=== PATIENT | female | born 1965 | race Caucasian/White ===

== ENCOUNTER → 2017-01-11 | Outpatient (CLI) | payer BC ==
--- NOTE | 2017-01-12 12:31 | USB ---
Reason for exam: clinical finding. History: Patient is nulliparous. Family history of breast cancer in aunt at age 75. Indicated problem(s): pain in the right breast. Physical Findings: Nurse Summary: Bilateral redness under breasts. All soft nodular movable (nurse ts). US Breast RT Right breast ultrasound includes all four quadrants, the retroareolar region and axilla. Finding demonstrate no cystic or solid lesion seen. These results were verbally communicated with the patient and result sheet given to the patient on 01/11/17. ASSESSMENT: Negative, BI-RAD 1 RECOMMENDATION: Routine screening mammogram of both breasts in 1 year. Manage patient on a clinical basis.
== END | disposition home or self-care (01) ==
LOC: RADUSWWP 10:12
PROVIDERS: ATTEND Family Medicine
DX: N64.4 Mastodynia (principal); N63 Unspecified lump in breast

== ENCOUNTER → 2017-05-11 | Outpatient (CLI) | payer BC ==
--- NOTE | 2017-05-11 11:42 | XR ---
Right knee HISTORY: Right medial knee pain 3 views of the right knee No comparisons There is spurring at the patellofemoral joint, joint space loss present especially in the medial late ral compartments. There may be a small joint effusion. Alignment and bone mineralization are maintain ed. IMPRESSION: Osteoarthritis.
== END | disposition home or self-care (01) ==
LOC: RADXRYALE 10:15
PROVIDERS: ATTEND Physician Assistant Medical
DX: M17.11 Unilateral primary osteoarthritis, right knee (principal)

== ENCOUNTER → 2020-09-16 | Outpatient (CLI) | payer BC ==
--- NOTE | 2020-09-17 08:29 | MM ---
Reason for exam: screening (asymptomatic). Last mammogram was performed 8 years and 11 months ago. History: Patient is nulliparous. Family history of breast cancer in aunt at age 75. Physical Findings: A clinical breast exam by your physician is recommended on an annual basis and results should be correlated with mammographic findings. MG Screening Mammo w CAD Bilateral CC and MLO view(s) were taken. Prior study comparison: October 13, 2011, CAD bilateral diagnostic mammogram. There are scattered fibroglandular densities. There is no discrete abnormality. ASSESSMENT: Negative, BI-RAD 1 RECOMMENDATION: Routine screening mammogram of both breasts in 1 year.
== END | disposition home or self-care (01) ==
LOC: RADMAMWWP 11:13
PROVIDERS: ATTEND Family Medicine
DX: Z12.31 Encounter for screening mammogram for malignant neoplasm of breast (principal)
CPT/HCPCS: 77067

== ENCOUNTER → 2021-01-20 | Outpatient (CLI) | payer BC ==
--- NOTE | 2021-01-20 14:26 | XR ---
Right hip HISTORY:[id number] LBP,RT HIP PAIN 2 views the right hip Bone mineralization and alignment are maintained. There is some loss of joint space, marginal spurrin g. No fracture or dislocation. IMPRESSION: Osteoarthritis.
--- NOTE | 2021-01-20 14:35 | XR ---
Lumbosacral spine HISTORY: M545,[id number] LBP,RT HIP PAIN 5 views lumbosacral spine Bone mineralization is reduced. Lumbar vertebral bodies show preserved height and alignment. There is multilevel spondylosis. Loss of disc height present at the intervertebral levels. Sclerosis is prese nt in the posterior elements. There is no evident spondylolysis. There is a slight spinal curvature. IMPRESSION: Degenerative disc disease, facet arthropathy, osteopenia, slight spinal curvature.
== END | disposition home or self-care (01) ==
LOC: RADXRYALE 11:09
PROVIDERS: ATTEND Physician Assistant Medical
DX: M51.37 Other intervertebral disc degeneration, lumbosacral region (principal); M47.817 Spondylosis without myelopathy or radiculopathy, lumbosacral region; M85.88 Other specified disorders of bone density and structure, other site; M43.8X7 Other specified deforming dorsopathies, lumbosacral region; M16.11 Unilateral primary osteoarthritis, right hip
CPT/HCPCS: 72110; 73502

== ENCOUNTER → 2021-05-23 | Outpatient (CLI) | payer BC ==
--- NOTE | 2021-06-29 09:27 | EM ---
Event monitor for palpitations and dizziness and syncope Event monitor shows sinus rhythm Sinus tachycardia 1 single PVC and the patient complained of being dizzy with fluttering No sustained or nonsustained tachycardia or bradycardia arrhythmias Patient denies experiencing syncope during this study MTDD
== END | disposition home or self-care (01) ==
LOC: RADECHMAIN 11:50
PROVIDERS: ATTEND Family Medicine
DX: R42 Dizziness and giddiness (principal); R00.2 Palpitations
CPT/HCPCS: 93270

== ENCOUNTER → 2022-04-13 | Outpatient (CLI) | payer MEDICAID ==
--- NOTE | 2022-04-13 11:19 | XR ---
EXAMINATION TYPE: XR abdomen 2V DATE OF EXAM: 04/13/2022 COMPARISON: NONE HISTORY: Pain TECHNIQUE: two view abdominal series FINDINGS: Hypertrophic and degenerative changes of the spine. The bowel gas pattern is nonspecific. Lung bases are clear. Arthropathy of the hips. IMPRESSION: 1. Nonspecific abdomen.
== END | disposition home or self-care (01) ==
LOC: RADXRYALE 11:00
PROVIDERS: ATTEND Physician Assistant
DX: R19.7 Diarrhea, unspecified (principal)
CPT/HCPCS: 74019

== ENCOUNTER → 2022-08-18 | Outpatient (CLI) | payer MEDICAID ==
--- NOTE | 2022-08-21 08:20 | MM ---
Reason for Exam: Screening (asymptomatic). Last mammogram was performed 1 year(s) and 11 month(s) ago. Patient History: Menarche at age 9. Patient has no children. Postmenopausal. Maternal aunt had breast cancer, age 75. Risk Values: Glenda 5 year model risk: 1.7%. NCI Lifetime model risk: 9.1%. Prior Study Comparison: 10/13/2011 Bilateral Diagnostic Mammogram, [facility]. 09/16/2020 Bilateral Screening Mammogram, [facility]. Tissue Density: The breast tissue is almost entirely fat. Findings: Analyzed By CAD. Benign-appearing left axillary lymph node. There is no suspicious group of microcalcifications or new suspicious mass in either breast. Overall Assessment: Negative, BI-RAD 1 Management: Screening Mammogram of both breasts in 1 year. A clinical breast exam by your physician is recommended on an annual basis and results should be correlated with mammographic findings. Electronically signed and approved by: Yassine Denise M.D.
== END | disposition home or self-care (01) ==
LOC: RADMAMWWP 11:17
PROVIDERS: ATTEND Family Medicine
DX: Z12.31 Encounter for screening mammogram for malignant neoplasm of breast (principal); Z78.0 Asymptomatic menopausal state; Z80.3 Family history of malignant neoplasm of breast
CPT/HCPCS: 77063; 77067

== ENCOUNTER 2022-11-20 17:48 | Emergency (ER) | payer MEDICAID ==
[2022-11-20 17:58] VITALS: TEMP 98
--- NOTE | 2022-11-20 19:16 | ED ---
Eye Problem HPI - General Chief complaint: Eye Problems Stated complaint: "floater" in L eye Time Seen by Provider: 11/20/22 18:55 Source: patient Mode of arrival: ambulatory Limitations: no limitations - History of Present Illness Initial comments: This 57-year-old female presents complaining of having floaters to her left eye. This has been intermittent over the last 5 days. She states at times her vision is normal and at times she will have a floater. She denies any actual pain. There's been no trauma. She has had occasional similar symptoms in the past with resolution spontaneously. She does not have any history of glaucoma or other ocular disease. She does see an communications tower climber for glasses but denies any other problems. Her vision otherwise is normal. 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 No other complaints or modifying factors. - Related Data Allergies Allergy/AdvReac Type Severity Reaction Status Date / Time amoxicillin [From Augmentin] AdvReac Swelling Verified 11/20/22 17:58 clavulanic acid AdvReac Swelling Verified 11/20/22 17:58 [From Augmentin] Review of Systems ROS Statement: Those systems with pertinent positive or pertinent negative responses have been documented in the HPI. ROS Other: All systems not noted in ROS Statement are negative. Past Medical History Past Medical History: No Reported History History of Any Multi-Drug Resistant Organisms: None Reported Past Surgical History: No Surgical Hx Reported Past Psychological History: No Psychological Hx Reported Smoking Status: Never smoker Past Alcohol Use History: None Reported Past Drug Use History: None Reported General Exam Limitations: no limitations Eye exam: Present: normal appearance. Absent: conjunctival injection, nystagmus, periorbital swelling, periorbital tenderness Pupils: Present: normal accommodation, other (Funduscopic exam is normal. Vision is grossly intact.). Absent: irregular Course Vital Signs 11/20/22 11/20/22 17:56 18:58 Temperature 98 F Pulse Rate 105 H 78 Respiratory 20 16 Rate Blood Pressure 135/83 150/65 O2 Sat by Pulse 97 98 Oximetry Medical Decision Making - Medical Decision Making Was pt. sent in by a medical professional or institution (, PA, MANAGER CALL CENTER, urgent care, hospital, or usp...) When possible be specific @ -Nurses that the patient worked with told her to come to the ER for further evaluation. Did you speak to anyone other than the patient for history (EMS, parent, family, police, friend...)? What history was obtained from this source @ -[No] Did you review nursing and triage notes (agree or disagree)? Why? @ -[I reviewed and agree with nursing and triage notes] Were old charts reviewed (outside hosp., previous admission, EMS record, old EKG, old radiological studies, urgent care reports/EKG's, usp records)? Report findings @ -[No old charts were reviewed] Differential Diagnosis (chest pain, altered mental status, abdominal pain women, abdominal pain men, vaginal bleeding, weakness, fever, dyspnea, syncope, headache, dizziness, GI bleed, back pain, seizure, CVA, palpatations, mental health, musculoskeletal)? @ -Floaters, retinal detachment, vitreous hemorrhage EKG interpreted by me (3pts min.). @ -[As above] X-rays interpreted by me (1pt min.). @ -[None done] CT interpreted by me (1pt min.). @ -[None done] U/S interpreted by me (1pt. min.). @ -A limited bedside emergency department ultrasound is completed by myself and interpreted by myself and there is normal-appearing retina with no evidence of vitreous hemorrhage or retinal detachment What testing was considered but not performed or refused? (CT, X-rays, U/S, labs)? Why? @ -[None] What meds were considered but not given or refused? Why? @ -[None] Did you discuss the management of the patient with other professionals (professionals i.e. , PA, MANAGER CALL CENTER, lab, RT, psych nurse, psychiatric social worker supervisor, film archivist, teacher, disability liaison officer, home health care case manager)? Give summary @ -[No] Was smoking cessation discussed for >3mins.? @ -[No] Was critical care preformed (if so, how long)? @ -[No] Were there social determinants of health that impacted care today? How? (Homelessness, low income, unemployed, alcoholism, drug addiction, transportati on, low edu. Level, literacy, decrease access to med. care, fci, rehab)? @ -[No] Was there de-escalation of care discussed even if they declined (Discuss DNR or withdrawal of care, Hospice)? DNR status @ -[No] What co-morbidities impacted this encounter? (DM, HTN, Smoking, COPD, CAD, Cancer, CVA, ARF, Chemo, Hep., AIDS, mental health diagnosis, sleep apnea, morbid obesity)? @ -[None] Was patient admitted / discharged? Hospital course, mention meds given and route, prescriptions, significant lab abnormalities, going to OR and other pertinent info. @ -The patient was seen and examined. The limited bedside emergency department ocular ultrasound is done of the left eye and this does not show any acute abnormalities. It is felt as though her symptoms likely are related to floaters. She is to follow-up with optho in the next day or 2. Return parameters are discussed. Undiagnosed new problem with uncertain prognosis? @ -[No] Drug Therapy requiring intensive monitoring for toxicity (Heparin, Nitro, Insulin, Cardizem)? @ -[No] Were any procedures done? @ -A limited bedside emergency department ocular ultrasound is completed by myself. Diagnosis/symptom? @ -Left eye floater Acute, or Chronic, or Acute on Chronic? @ -Acute Uncomplicated (without systemic symptoms) or Complicated (systemic symptoms)? @ -Uncomplicated Side effects of treatment? @ -[No] Exacerbation, Progression, or Severe Exacerbation? @ -[No] Poses a threat to life or bodily function? How? (Chest pain, [place], [place], pneumonia, PE, COPD, DKA, ARF, appy, cholecystitis, CVA, Diverticulitis, Homicidal, Suicidal, threat to staff... and all critical care pts) @ -[No] Disposition Clinical Impression: Floaters in visual field Disposition: HOME SELF-CARE Condition: Good Instructions (If sedation given, give patient instructions): Visual Floaters (ED) Additional Instructions: Please follow-up with your eye doctor in the next 1-2 days. Is patient prescribed a controlled substance at d/c from ED?: No Referrals: Bruce Navarrete DO [Primary Care Provider] - 1-2 days Time of Disposition: 19:16
[2022-11-20 19:39] VITALS: BP 150/65; PULSE 78; RESP 16
== END 2022-11-20 19:37 | disposition home or self-care (01) ==
LOC: EC 17:48
DX: H43.392 Other vitreous opacities, left eye (principal); Z88.0 Allergy status to penicillin; Z88.1 Allergy status to other antibiotic agents
CPT/HCPCS: 99283

== ENCOUNTER → 2023-09-04 | Outpatient (CLI) | payer MEDICAID ==
--- NOTE | 2023-09-05 13:30 | MM ---
Reason for Exam: Screening (asymptomatic). Last mammogram was performed 1 year(s) and 1 month(s) ago. Patient History: Menarche at age 9. Patient has no children. Postmenopausal. Maternal aunt had breast cancer, age 75. Risk Values: Glenda 5 year model risk: 1.8%. NCI Lifetime model risk: 8.9%. Prior Study Comparison: 10/13/2011 Bilateral Diagnostic Mammogram, [facility]. 09/16/2020 Bilateral Screening Mammogram, [facility]. 08/18/2022 Bilateral MG 3D screening mammo w/cad, [facility]. Tissue Density: The breast tissue is almost entirely fat. Findings: Analyzed By CAD. There is no suspicious group of microcalcifications or new suspicious mass. Benign-appearing calcifications left breast. Overall Assessment: Benign, BI-RAD 2 Management: Screening Mammogram of both breasts in [address] [facility] will attempt to contact patient to return for supplemental views and ultrasound if indicated. Patient should continue monthly self-breast exams. A clinical breast exam by your physician is recommended on an annual basis. This exam should not preclude additional follow-up of suspicious palpable abnormalities. Note on Glenda scores and lifetime risk: 1. A Glenda score greater than 3% is considered moderate risk. If this is the case, consider specialist referral to assess eligibility for a risk reducing agent. 2. If overall lifetime risk for the development of breast cancer is 20% or higher, the patient may qualify for future screening with alternating mammogram and breast MRI. Electronically signed and approved by: Sebastian Lewis DO
== END | disposition home or self-care (01) ==
LOC: RADMAMWWP 11:52
PROVIDERS: ATTEND Family Medicine
DX: Z12.31 Encounter for screening mammogram for malignant neoplasm of breast (principal); Z78.0 Asymptomatic menopausal state; Z80.3 Family history of malignant neoplasm of breast
CPT/HCPCS: 77063; 77067

== ENCOUNTER → 2023-09-17 | Outpatient (CLI) | payer MEDICAID ==
--- NOTE | 2023-09-17 11:10 | XR ---
EXAMINATION TYPE: XR knee complete LT DATE OF EXAM: 09/17/2023 COMPARISON: NONE HISTORY: Pain TECHNIQUE: Three views are submitted. FINDINGS: Mild narrowing of the patellofemoral joint. There is these a fight in the quadriceps insertion. Small exostosis of the posterior proximal diaphysis fibula.. Osseous structures are intact. No acute fra cture seen. IMPRESSION: 1. Mild arthropathy of the patellofemoral joint with enthesophytes or small spur along the upper yuri in of the patella. 2. Small exostosis proximal diaphysis posterior cortex fibula.
== END | disposition home or self-care (01) ==
LOC: RADXRYALE 10:35
PROVIDERS: ATTEND Physician Assistant
DX: M89.9 Disorder of bone, unspecified (principal); M25.562 Pain in left knee

== ENCOUNTER → 2024-01-09 | Outpatient (CLI) | payer MEDICAID ==
--- NOTE | 2024-01-14 05:59 | MR ---
EXAMINATION TYPE: MR knee LT wo con DATE OF EXAM: 01/09/2024 COMPARISON: Left knee x-rays September 17, 2023 HISTORY: Left knee pain for 3 months TECHNIQUE: Multiplanar, multisequence images of the knee is performed without IV contrast. FINDINGS: MEDIAL MENISCUS: Slight medial bulging medial meniscus on coronal images. Globular increased signal p osterior horn medial meniscus does not extend to articular surface. LATERAL MENISCUS: Subtle horizontal increased signal central body extending towards posterior horn sa gittal image 7 and coronal image 21 does not extend to articular surface. CRUCIATE LIGAMENTS: The anterior and posterior cruciate ligaments are intact and unremarkable. COLLATERAL LIGAMENTS: The medial collateral ligament and lateral collateral ligament complex are inta ct. Increased signal and thickening of the proximal LCL proper. Mild fluid signal surrounds the MCL. EXTENSOR MECHANISM: Visualized quadriceps and patellar tendons are intact. EFFUSION: Small to moderate size suprapatellar joint effusion. POPLITEAL CYST: Small to moderate size popliteal/goins cyst. TRICOMPARTMENT SPACES: Mild to moderate tricompartment joint space loss. No significant spurring. CARTILAGE: Some cartilaginous loss medial tibiofemoral compartment. No significant chondromalacia pat eliz. BONE MARROW SIGNAL: No focal abnormal marrow signal is appreciated. OTHER: Prominent vessel in the medial subcutaneous tissue, probable varicose vein. IMPRESSION: 1. Intrasubstance tear posterior horn of medial meniscus. 2. Intrasubstance tear central body and posterior horn of lateral meniscus. 3. Mild to moderate tricompartment degenerative changes are present as detailed above. 4. Small to moderate-sized suprapatellar joint effusion. 5. Small to moderate sized popliteal cyst. 6. Mild MCL sprain injury. Chronic LCL sprain injury.
== END | disposition home or self-care (01) ==
LOC: RADMRIMAIN 14:12
PROVIDERS: ATTEND Family Medicine
DX: S83.242A Other tear of medial meniscus, current injury, left knee, initial encounter (principal); S83.282A Other tear of lateral meniscus, current injury, left knee, initial encounter; S83.412A Sprain of medial collateral ligament of left knee, initial encounter; M17.12 Unilateral primary osteoarthritis, left knee; M25.462 Effusion, left knee; M71.22 Synovial cyst of popliteal space [Baker], left knee

== ENCOUNTER → 2024-02-06 | Outpatient (CLI) | payer MEDICAID ==
[2024-02-06 18:30] LABS: Basophils # (A) 0.07 X 10*3/uL (0.00-0.10); Basophils % (A) 0.6 %; Eosinophils # (A) 0.13 X 10*3/uL (0.04-0.35); Eosinophils % (A) 1.2 %; HCT 40.8 % (37.2-46.3); HGB 13.6 g/dL (12.0-15.0); Lymphocytes # (A) 2.67 X 10*3/uL (0.90-5.00); Lymphocytes % (A) 24.6 %; MCH 28.6 pg (27.0-32.0); MCHC 33.3 g/dL (32.0-37.0); MCV 85.7 FL (80.0-97.0); Mean Platelet Volume 9.1 FL (9.5-12.2); Monocytes # (A) 0.65 X 10*3/uL (0.20-1.00); NRBC Per 100 WBC 0 X 10*3/uL (0.00-0.01); Neutrophils # (A) 7.28 X 10*3/uL (1.80-7.70); Neutrophils % (A) 67.2 %; Platelet Count 362 X 10*3/uL (140-440); RBC 4.76 X 10*6/uL (4.10-5.20); RDW 12.5 % (11.5-14.5); WBC 10.84 X 10*3/uL (4.50-10.00)
[2024-02-06 19:43] LABS: Anion Gap 12.7 mmol/L (4.00-12.00); Carbon Dioxide 26.3 mmol/L (21.6-31.8); Potassium 4.2 mmol/L (3.5-5.5)
== END | disposition home or self-care (01) ==
LOC: LABPAT 14:11
PROVIDERS: ATTEND Orthopaedic Surgery
DX: Z01.818 Encounter for other preprocedural examination (principal); M23.92 Unspecified internal derangement of left knee; I51.7 Cardiomegaly
CPT/HCPCS: 80051; 85025; 93005

== ENCOUNTER → 2024-02-21 | Day surgery (SDC) | payer MEDICAID ==
[2024-02-20 09:00] VITALS: BMI 43.0
--- NOTE | 2024-02-20 14:55 | HP ---
HISTORY AND PHYSICAL DATE OF SURGERY: 02/21/2024. HISTORY OF PRESENT ILLNESS: Torrie Pascual is a 59-year-old patient, seen with progressive left knee pain. We discussed options regarding treatment. She elected to proceed with left knee arthroscopy. Consent was obtained. PAST MEDICAL HISTORY: Hypertension. PAST SURGICAL HISTORY: Left wrist surgery. DAILY MEDICATIONS: Hydrochlorothiazide, ibuprofen, losartan. ALLERGIES: Augmentin. SOCIAL HISTORY: She denies tobacco use. PHYSICAL EVALUATION OF THE LEFT KNEE: Range of motion 0 to 115 degrees. Mild moderate effusion. Tenderness along the medial lateral joint line. Positive medial Libertad's. Positive lateral Libertad's. Ligaments stable. Hip rotation without pain. Distal neurovascular exam is intact. IMAGING STUDIES: Radiographs of the left knee revealed moderate osteoarthritis. MRI of the left knee revealed a medial lateral meniscal tears, effusion, popliteal cyst, moderate osteoarthritis. IMPRESSION: 1. Internal derangement of left knee with medial and lateral meniscal tears. 2. Hypertension. PLAN: Left knee arthroscopy with partial medial/lateral meniscectomy and debridement. MMODL / IJN: [id number] /
[~2024-02-21] MED LIST: LIDOCAINE 1% (10MG/ML) FOR IV START INTRADERMA PRN; LIDOCAINE 1% INJ 10MG/ML (20 ML MDV) ONE; MIDAZOLAM 2 MG/2 ML VIAL ONE; PROPOFOL 10 MG/ML 20 ML VIAL IV ONE; SCOPOLAMINE 1 MG/72 HR PATCH TRANSDERM ONE; SUCCINYLCHOLINE CHLORIDE 200 MG/10 ML VIAL IV ONE; droPERidol 5 MG/2 ML VIAL IVP ONE; fentaNYL (PF) 50 MCG/ML 2 ML AMP ONE
[2024-02-21] MEDS: LACTATED RINGERS 1,000 ML IV SCH (11:07)
[2024-02-21] MEDS: ONDANSETRON 4 MG/2 ML VIAL IVP ONE (11:21)
[2024-02-21] MEDS: DEXAMETHASONE SOD PHOSPHATE 4 MG/ML 1 ML VIAL IV ONE (11:22)
[2024-02-21] MEDS: BUPIVACAINE (PF) 0.25% 30 ML VIAL INTRAARTIC ONE (12:07)
[2024-02-21 12:56] VITALS: TEMP 97.1
--- NOTE | 2024-02-21 12:58 | P.OP ---
Date of Procedure: 02/21/24 Preoperative Diagnosis: Internal derangement left knee Postoperative Diagnosis: 1. Tear medial and lateral meniscus left knee 2. Grade IV chondromalacia medial femoral condyle left knee 3. Reactive synovitis medial, lateral and suprapatellar compartments left knee 4. Grade II/III chondromalacia lateral femoral condyle left knee Procedure(s) Performed: 1. Arthroscopic partial medial and lateral meniscectomy left knee 2. Arthroscopic microfracture medial femoral condyle left knee 3. Arthroscopic partial synovectomy medial, lateral and suprapatellar compartments left knee 4. Arthroscopic chondroplasty lateral femoral condyle left knee Anesthesia: TRACY, local Surgeon: Fredis Ceballos Estimated Blood Loss (ml): 10 Pathology: none sent Condition: stable Disposition: PACU Indications for Procedure: 59-year-old patient seen with progressive left knee pain. After having treatment options discussed, she elected to proceed with arthroscopy. Operative Findings: See description of procedure Description of Procedure: Patient was taken to the operative suite. Patient underwent a general anesthetic by the department of anesthesia. Patient was given preoperative antibiotics. The left lower extremity was placed in a well-padded arthroscopic leg nieto. The left leg was prepped and draped in the normal sterile orthopedic fashion. A lateral parapatellar and suprapatellar incision was made. Trochars were inserted. Arthroscopy was initiated. Suprapatellar pouch revealed diffuse thick reactive synovitis. The patellofemoral joint appeared intra-articular congruently. There was grade I/II chondromalacia of the patella. The scope was guided into the medial gutter. No loose bodies or plica were identified. The scope was then guided into the medial compartment. A medial parapatellar incision was made. Trocar inserted followed by probe. There was a radial tear posterior medial meniscus. There were grade III/IV chondromalacia changes of the medial femoral condyle some osteochondral fracture is present. There was thick reactive status anteriorly. I performed a partial medial meniscectomy getting down to a stable meniscal tissue. I performed a chondroplasty of the medial femoral condyle getting down to a stable osteochondral tissue. I performed a partial synovectomy decompressing the right capsulitis. I did note an area exposed bone medial femoral condyle measuring just over a centimeter. I introduced a microfracture awl. I performed a microfracture to the area exposed bone medial femoral condyle penetrating the bone with resultant bleeding at the microfracture site. The residual meniscus was probed and was found to be stable. The residual osteochondral surface of the medial femoral condyle appeared stable. There was good decompression of the synovitis. Scope and probe were then guided into the intercondylar notch. Cruciates were identified, probed and found to be stable. The scope and probe were then guided into lateral compartment. There was a radial tear involving the mid body and posterior horn lateral meniscus. There was an area of grade II/III chondromalacia lateral femoral condyle with a large osteochondral flap tear present. There was thick reactive cellulitis anteriorly. I performed a partial lateral meniscectomy getting down to stable meniscal tissue. I performed a chondroplasty of the lateral femoral condyle getting down to a stable osteochondral tissue. I performed a partial synovectomy decompressing the reactive synovitis. The residual meniscus was probed and was found to be stable. There was good decompression of the synovitis. The residual osteochondral surface was stable. The scope was in guided back into the suprapatellar compartment. I introduced a motorized shaver into the suprasellar compartment. I performed a partial synovectomy. The shaver was now removed. There was good decompression of the synovitis. I took 1 more look around the entire knee, no residual debris. Instruments were now removed from the joint. The joint was infiltrated with .25% Marcaine. Steri-Strips were applied to the portal sites. Sterile dressings were applied. The patient was placed into a GUILLE hose. No tourniquet was utilized. The patient was awakened, transferred to a bed and taken to recovery stable satisfactory condition.
[2024-02-21] MEDS: HYDROmorphone 0.5 MG/0.5 ML SYRINGE IVP PRN (13:08)
[2024-02-21 14:07] VITALS: RESP 14
[2024-02-21 14:21] VITALS: BP 147/83; PULSE 88
== END | disposition home or self-care (01) ==
LOC: OR 10:59
PROVIDERS: ATTEND Orthopaedic Surgery
DX: S83.282A Other tear of lateral meniscus, current injury, left knee, initial encounter (principal); S83.242A Other tear of medial meniscus, current injury, left knee, initial encounter; M65.162 Other infective (teno)synovitis, left knee; M22.42 Chondromalacia patellae, left knee; I10 Essential (primary) hypertension; E78.5 Hyperlipidemia, unspecified; G47.33 Obstructive sleep apnea (adult) (pediatric); E66.01 Morbid (severe) obesity due to excess calories; Z88.8 Allergy status to other drugs, medicaments and biological substances; Z88.0 Allergy status to penicillin; Z88.1 Allergy status to other antibiotic agents; Z98.890 Other specified postprocedural states; Z79.899 Other long term (current) drug therapy; Z68.41 Body mass index [BMI] 40.0-44.9, adult; X58.XXXA Exposure to other specified factors, initial encounter
CPT/HCPCS: 29879; 29880; J2250; J0330; J1100; J0690; J2405; J2001; J3010; J2704; J1170; J0665

== ENCOUNTER → 2024-04-03 | Outpatient (CLI) | payer MEDICAID ==
--- NOTE | 2024-04-03 12:33 | US ---
EXAMINATION TYPE: US venous doppler duplex LE LT DATE OF EXAM: 04/03/2024 12:21 PM COMPARISON: NONE CLINICAL INDICATION: Female, 59 years old with history of M79.662 PAIN IN L R22.42 SWELILNG IN EXTRE MITY; Left ankle swelling, recent surgery to leg, no h/o dvt SIDE PERFORMED: Left TECHNIQUE: The lower extremity deep venous system is examined utilizing real time linear array sonog viry with graded compression, doppler sonography and color-flow sonography. VESSELS IMAGED: Common Femoral Vein Deep Femoral Vein Greater Saphenous Vein * Femoral Vein Popliteal Vein Small Saphenous Vein * Proximal Calf Veins (* superficial vessels) Left Leg: Negative for DVT IMPRESSION: Grayscale, color doppler, spectral doppler imaging performed of the deep veins of the lo wer extremities. There is normal flow, compressibility, vascular waveforms.
== END | disposition home or self-care (01) ==
LOC: RADUSWWP 12:02
PROVIDERS: ATTEND Orthopaedic Surgery
DX: M79.662 Pain in left lower leg (principal); R22.42 Localized swelling, mass and lump, left lower limb

== ENCOUNTER → 2024-07-22 | Outpatient (CLI) | payer MEDICAID ==
[2024-07-22 18:40] LABS: Basophils # (A) 0.06 X 10*3/uL (0.00-0.10); Basophils % (A) 0.6 %; Eosinophils # (A) 0.22 X 10*3/uL (0.04-0.35); Eosinophils % (A) 2.3 %; HCT 43.2 % (37.2-46.3); HGB 14.3 g/dL (12.0-15.0); Lymphocytes # (A) 2.45 X 10*3/uL (0.90-5.00); MCH 27.7 pg (27.0-32.0); MCHC 33.1 g/dL (32.0-37.0); MCV 83.7 FL (80.0-97.0); Mean Platelet Volume 9.3 FL (9.5-12.2); Monocytes # (A) 0.64 X 10*3/uL (0.20-1.00); Monocytes % (A) 6.8 %; NRBC Per 100 WBC 0 X 10*3/uL (0.00-0.01); Neutrophils # (A) 6.03 X 10*3/uL (1.80-7.70); Neutrophils % (A) 63.9 %; Platelet Count 382 X 10*3/uL (140-440); RBC 5.16 X 10*6/uL (4.10-5.20); RDW 12.5 % (11.5-14.5); WBC 9.44 X 10*3/uL (4.50-10.00)
[2024-07-22 19:44] LABS: Anion Gap 10.2 mmol/L (4.00-12.00); Carbon Dioxide 26.8 mmol/L (21.6-31.8); Potassium 4.1 mmol/L (3.5-5.5)
== END | disposition home or self-care (01) ==
LOC: LABPAT 14:26
PROVIDERS: ATTEND Orthopaedic Surgery
DX: Z01.812 Encounter for preprocedural laboratory examination (principal); M23.91 Unspecified internal derangement of right knee
CPT/HCPCS: 80051; 85025

== ENCOUNTER 2024-08-06 07:30 | Day surgery (SDC) | payer MEDICAID ==
[2024-07-30 10:54] VITALS: BMI 43.1
--- NOTE | 2024-08-06 00:28 | HP ---
HISTORY AND PHYSICAL DATE OF SURGERY: 08/06/2024. HISTORY OF PRESENT ILLNESS: Torrie Pascual is a 59-year-old patient, seen with progressive right knee pain. We discussed options regarding treatment. She elected to proceed with right knee arthroscopy. Consent was obtained. PAST MEDICAL HISTORY: Hypertension. PAST SURGICAL HISTORY: Left wrist surgery. DAILY MEDICATIONS: 1. Hydrochlorothiazide. 2. Losartan. 3. Ibuprofen. ALLERGIES: Augmentin and Lodine. SOCIAL HISTORY: She denies tobacco use. PHYSICAL EVALUATION OF THE RIGHT KNEE: Her range of motion is 0 to 125 degrees. Mild effusion. Tenderness, medial joint line. Positive medial Libertad's. Ligaments stable. Hip rotation without pain. Distal neurovascular exam is intact. IMAGING STUDIES: Right knee radiographs revealed moderate osteoarthritic changes. IMPRESSION: 1. Internal derangement of right knee with medial meniscal tear. 2. Hypertension. PLAN: Right knee arthroscopy with partial medial meniscectomy and debridement. MMODL / IJN: [id number] /
[~2024-08-06 07:30] MED LIST changes: -LIDOCAINE 1% INJ 10MG/ML (20 ML MDV) ONE; +MIDAZOLAM 2 MG/2 ML VIAL IV PRN; -MIDAZOLAM 2 MG/2 ML VIAL ONE; -PROPOFOL 10 MG/ML 20 ML VIAL IV ONE; -SCOPOLAMINE 1 MG/72 HR PATCH TRANSDERM ONE; -SUCCINYLCHOLINE CHLORIDE 200 MG/10 ML VIAL IV ONE; -droPERidol 5 MG/2 ML VIAL IVP ONE; +fentaNYL (PF) 50 MCG/ML 2 ML AMP IVP PRN; -fentaNYL (PF) 50 MCG/ML 2 ML AMP ONE
[2024-08-06] MEDS: IV FLUID CONTINUATION 1,000 ML IV ONE (08:03)
[2024-08-06] MEDS: DEXAMETHASONE SOD PHOSPHATE 4 MG/ML 1 ML VIAL IV ONE (08:20)
[2024-08-06] MEDS: ONDANSETRON 4 MG/2 ML VIAL IVP ONE (08:20)
[2024-08-06] MEDS: LACTATED RINGERS 1,000 ML IV SCH (08:20)
[2024-08-06] MEDS: FAMOTIDINE 20 MG/2 ML VIAL IV STA (08:21)
[2024-08-06] MEDS ORDERED: LIDOCAINE 1% INJ 10MG/ML (20 ML MDV) ONE (09:06)
[2024-08-06] MEDS ORDERED: SUCCINYLCHOLINE CHLORIDE 200 MG/10 ML VIAL IV ONE (09:06)
[2024-08-06] MEDS ORDERED: PROPOFOL 10 MG/ML 20 ML VIAL IV ONE (09:06)
[2024-08-06] MEDS ORDERED: fentaNYL (PF) 50 MCG/ML 2 ML AMP ONE (09:06)
[2024-08-06] MEDS ORDERED: MIDAZOLAM 2 MG/2 ML VIAL ONE (09:06)
[2024-08-06] MEDS: BUPIVACAINE (PF) 0.25% 30 ML VIAL INTRAARTIC ONE ×2 (09:27→09:43)
--- NOTE | 2024-08-06 09:57 | P.OP ---
Date of Procedure: 08/06/24 Preoperative Diagnosis: Internal derangement right knee Postoperative Diagnosis: 1. Tear medial and lateral meniscus right knee 2. Grade IV chondromalacia medial femoral condyle right knee 3. Reactive synovitis medial, lateral and suprapatellar compartments right knee 4. Loose body right knee Procedure(s) Performed: 1. Arthroscopic partial medial and lateral meniscectomy right knee 2. Arthroscopic microfracture medial femoral condyle right knee 3. Arthroscopic partial synovectomy medial, lateral and suprapatellar compartments right knee 4. Arthroscopic removal loose body right knee measuring 1 cm x 5 mm x 3 mm Anesthesia: TRACY, local Surgeon: Fredis Ceballos Estimated Blood Loss (ml): 5 Pathology: none sent Condition: stable Disposition: PACU Indications for Procedure: 59-year-old patient seen with progressive right knee pain. After treatment options were discussed, she elected to proceed with arthroscopy. Operative Findings: See description of procedure Description of Procedure: Patient was taken to the operative suite. Patient underwent a placement. General anesthetic by the department of anesthesia. Patient was given preoperative antibiotics. The right lower extremity was placed in a well-padded arthroscopic leg nieto. The right leg was prepped and draped in the normal sterile orthopedic fashion. A lateral parapatellar and suprapatellar incision was made. Trochars were inserted. Arthroscopy was initiated. Suprapatellar pouch revealed diffuse thick reactive synovitis. The patellofemoral joint appeared to articular congruently. There was grade II chondromalacia of the patella without significant osteochondral tears being present. The scope was guided into the medial gutter. There were no loose bodies or plica identified. The scope was then guided into the medial compartment. A medial parapatellar incision was made. Trocar inserted followed by probe. I encountered a loose body in the medial compartment. I reduced a loose body forceps I was able to retrieve this loose body which measured 1 cm x 5 mm x 3 mm. I now reintroduced a probe. There was a complex tear involving the posterior horn mid body areas of medial meniscus. There were grade III/IV chondromalacia changes medial femoral condyle with Fragment osteochondral flap tears. There was some thick reactive synovitis anteriorly. I performed a partial medial meniscectomy getting down to stable meniscal tissue. I performed a partial synovectomy decompressing the reactive synovitis. I performed a chondroplasty of the medial femoral condyle getting down to stable osteochondral tissue. I did note an area of exposed bone/grade IV chondromalacia along the medial femoral condyle weightbearing surface measuring just over a centimeter. I did use a microfracture awl and I performed a microfracture to that area penetrating the bone with resultant bleeding at the microfracture site. The residual meniscus was probed and was found to be stable. The residual osteochondral surface was stable. There was good decompression of the synovitis. Scope and probe were then guided into the intercondylar notch. Cruciates were identified, probed and found to be stable. The scope and probe were then guided into lateral compartment. There was a radial tear mid bilateral meniscus. There were grade I chondromalacia changes of the lateral compartment without tears. There was some thick reactive synovitis anteriorly. I performed a partial lateral meniscectomy getting down to stable meniscal tissue. I performed a partial synovectomy decompressing the reactive synovitis. The residual meniscus was stable. There was good decompression of the synovitis. The scope was in guided back into the suprapatellar compartment. I used a motorized shaver into the supra compartment. I debrided some piecemeal fragments of meniscus that I encountered. I performed a partial synovectomy. The shaver was now removed. There was good decompression of the synovitis. I now took 1 more look around the entire knee, no residual debris. Instruments were now removed from the joint. The joint was infiltrated with .25% Marcaine. Steri-Strips were applied to the portal sites. Sterile dressings were applied. The patient was placed into a GUILLE hose. No tourniquet was utilized. The patient was awakened, transferred to a bed and taken to recovery stable satisfactory condition.
[2024-08-06] MEDS: HYDROmorphone 0.5 MG/0.5 ML SYRINGE IVP PRN (10:04)
[2024-08-06 10:12] VITALS: RESP 16; TEMP 98
[2024-08-06 11:41] VITALS: BP 130/80; PULSE 82
== END 2024-08-06 12:02 | disposition home or self-care (01) ==
LOC: OR 07:30
PROVIDERS: ATTEND Orthopaedic Surgery
DX: S83.241A Other tear of medial meniscus, current injury, right knee, initial encounter (principal); S83.281A Other tear of lateral meniscus, current injury, right knee, initial encounter; M22.41 Chondromalacia patellae, right knee; M65.161 Other infective (teno)synovitis, right knee; M23.41 Loose body in knee, right knee; I10 Essential (primary) hypertension; Z88.0 Allergy status to penicillin; Z88.1 Allergy status to other antibiotic agents; Z98.890 Other specified postprocedural states; G47.33 Obstructive sleep apnea (adult) (pediatric); X58.XXXA Exposure to other specified factors, initial encounter
CPT/HCPCS: 29880; 29879; J2250; J0330; J1100; J0690; J2405; J2003; J3010; J3490; J2704; J1171; J0665

== ENCOUNTER → 2024-09-25 | Outpatient (CLI) | payer MEDICAID ==
--- NOTE | 2024-09-25 14:18 | MM ---
Reason for Exam: Screening (asymptomatic). Last screening mammogram was performed 12 month(s) ago. Patient History: Menarche at age 9. Patient has no children. Postmenopausal. Maternal aunt had breast cancer, age 75. Risk Values: Glenda 5 year model risk: 1.8%. NCI Lifetime model risk: 8.6%. Prior Study Comparison: 09/16/2020 Bilateral Screening Mammogram, [facility]. 08/18/2022 Bilateral MG 3D screening mammo w/cad, [facility]. 09/04/2023 Bilateral MG 3D screening mammo w/cad, [facility]. Tissue Density: There are scattered areas of fibroglandular density. Findings: Analyzed By CAD. There is no suspicious group of microcalcifications or new suspicious mass in either breast. Overall Assessment: Benign, BI-RAD 2 Management: Screening Mammogram of both breasts in 1 year. Patient should continue monthly self-breast exams. A clinical breast exam by your physician is recommended on an annual basis. This exam should not preclude additional follow-up of suspicious palpable abnormalities. Note on Glenda scores and lifetime risk: 1. A Glenda score greater than 3% is considered moderate risk. If this is the case, consider specialist referral to assess eligibility for a risk reducing agent. 2. If overall lifetime risk for the development of breast cancer is 20% or higher, the patient may qualify for future screening with alternating mammogram and breast MRI. [facility], , 09/25/2024 2:15 PM. Electronically signed and approved by: Vinnie Trujillo M.D. Radiologist
== END | disposition home or self-care (01) ==
LOC: RADMAMWWP 13:49
PROVIDERS: ATTEND Family Medicine
DX: Z12.31 Encounter for screening mammogram for malignant neoplasm of breast (principal); R92.323 Mammographic fibroglandular density, bilateral breasts; Z78.0 Asymptomatic menopausal state; Z80.3 Family history of malignant neoplasm of breast
CPT/HCPCS: 77063; 77067

== ENCOUNTER → 2024-12-17 | Outpatient (CLI) | payer OTHER ==
--- NOTE | 2024-12-17 15:37 | XR ---
EXAMINATION TYPE: XR elbow complete LT DATE OF EXAM: 12/17/2024 3:15 PM COMPARISON: None CLINICAL INDICATION: Female, 59 years old with history of M77.12, M77.02; PHH, pain TECHNIQUE: 3 views FINDINGS: Bony spurring at the lateral condyle. Prominent enthesophyte at the olecranon corresponding to the triceps insertion. Obliquity on the lateral view limits assessment for elbow joint effusion. No abnormal elevation of the anterior fat pad is seen. Small ossific density measuring 3 mm adjacent to the medial epicondyles. No acute fracture, subluxation, dislocation is seen. IMPRESSION: 1. Lateral view limited for assessment of elbow joint effusion. If concern for occult internal derang ement, consider repeating a lateral view. Otherwise, no acute osseous abnormalities seen. 2. Bony changes at both medial and lateral epicondyles suggesting common extensor and flexor origin t endinopathy. 3. A large spur at the olecranon. [facility], , 12/17/2024 3:35 PM
== END | disposition home or self-care (01) ==
LOC: RADXRMAIN 15:04
PROVIDERS: ATTEND Emergency Medicine
DX: M77.12 Lateral epicondylitis, left elbow (principal); M77.02 Medial epicondylitis, left elbow; M25.422 Effusion, left elbow; M25.722 Osteophyte, left elbow

== ENCOUNTER → 2025-01-22 | Outpatient (CLI) | payer OTHER ==
--- NOTE | 2025-01-22 14:41 | XR ---
EXAMINATION TYPE: XR elbow complete LT DATE OF EXAM: 01/22/2025 2:27 PM COMPARISON: 12/17/2024 CLINICAL INDICATION: Female, 59 years old with history of M77.12 Pain and swelling left elbow; PHH, p ain TECHNIQUE: 3 views FINDINGS: Bony spurring at the lateral condyle. Prominent spur at the olecranon process. No significant elbow j oint effusion seen though there is obliquity which limits assessment on the lateral view. Mild degene rative spurring radiocapitellar joint. IMPRESSION: 1. Mild degenerative change radiocapitellar joint. 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 A prominent olecranon spur. 2. No acute osseous abnormality seen. [facility], , 01/22/2025 2:38 PM
== END | disposition home or self-care (01) ==
LOC: RADXRMAIN 14:08
PROVIDERS: ATTEND Emergency Medicine
DX: M77.12 Lateral epicondylitis, left elbow (principal); M19.022 Primary osteoarthritis, left elbow